=== PATIENT | male | born 1965 | race Native Hawaiian/Other Pacific Islander ===

== ENCOUNTER 2021-10-12 16:11 | Emergency (ER) | payer OTHER, SELFPAY ==
[2021-10-12 16:42] VITALS: BP 159/87; PULSE 96; RESP 18; TEMP 36.6; O2SAT 97; BMI 27.3
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
[2021-10-12 18:53] VITALS: PULSE 89; RESP 18; O2SAT 99
== END 2021-10-12 18:54 | disposition home or self-care (01) ==
PROVIDERS: Emergency Provider Nurse Practitioner Family
DX: S16.1XXA Strain of muscle, fascia and tendon at neck level, initial encounter (principal); V89.2XXA Person injured in unspecified motor-vehicle accident, traffic, initial encounter; Y92.410 Unspecified street and highway as the place of occurrence of the external cause
CPT/HCPCS: 72125; 99283

== ENCOUNTER 2022-06-20 11:01 | Outpatient (CLI) | payer BC, SELFPAY ==
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
== END 2022-06-20 11:02 | disposition home or self-care (01) ==
LOC: RAD 11:01
PROVIDERS: PCP Internal Medicine; Visit Provider Internal Medicine
DX: I73.9 Peripheral vascular disease, unspecified (principal)
CPT/HCPCS: 93971

== ENCOUNTER 2022-06-20 12:13 | Emergency (ER) | payer BC, SELFPAY ==
[2022-06-20] VITALS (11 sets, daily range): BP systolic 121–150; BP diastolic 73–90; PULSE 62–103; RESP 10–21; TEMP 36.7; O2SAT 98–100; BMI 29.7
--- NOTE | 2022-06-20 13:05 | W.ED.EXTPRO ---
HPI - Extremity Problem General: Chief complaint: Extremity Problem,Nontraumatic Stated complaint: possible blood clot Time Seen by Provider: 06/20/22 12:40 History of Present Illness: This 56-year-old male was brought to the ER for evaluation of a left popliteal artery thrombosis that was found on ultrasound done this morning. Patient states that yesterday, while walking in [facility], he felt a charley horse type pain in the left calf. By the time he was done shopping, he could not hardly walk. He went over to his primary care provider's office who ordered an ultrasound that was done today. When he elevated his leg last night, the left leg turned purple. Ultrasound reveals a left popliteal artery thrombosis and so he was sent to the ER for evaluation. I reviewed the ultrasound report which gave an impression of an acute occlusive left popliteal artery thrombus with no residual blood flow distal to the thrombus. Flow is detected in the left dorsalis pedis artery and posterior tibial artery. There is no evidence of lower extremity DVT. Associated symptoms: Deny chest pain Review of Systems Const: Denies: chills, body aches or change in appetite Eyes: Denies: change in vision or eye discharge ENMT: Denies: throat pain, dental pain or nasal discharge Card: Denies: chest pain or lightheadedness : Denies: dysuria Musc: Reports: other (Pain left lower extremity) Neuro: Denies: headache(s) or weakness in extremities Psych: Denies: depression Efren/Lymph: Denies: easy bruising All/Imm: Denies: urticaria, tongue swelling or facial swelling Physical Exam Const: COMMON NORMALS: no acute distress and no limitations Chest: COMMONS NORMALS: normal inspection of the chest Resp: COMMON NORMALS: normal respiratory effort, No retractions, No use of accessory muscles and clear to auscultation bilaterally AUSCULTATION: clear to auscultation bilaterally Cardio: COMMON NORMALS: regular rate, regular rhythm and No murmurs present (Cardio) RATE: regular rate RHYTHM: regular rhythm GI: COMMON NORMALS: Normal to inspection, nondistended, normoactive bowel sounds present and non-tender Extremity: GENERAL: Yes normal exam except as noted OTHER: Tenderness on palpation of the left calf. No significant swelling. Presence of dorsalis pedis pulse. Purplish discoloration around the heel pad. No distal sensory deficit. Course Consultations: Consultation #1: Called [facility] live referral to speak with a vascular surgeon. They will get one and call us back. Time: 13:09 Consultation #2: [facility] referral called back to note that they spoke with Dr. Wilde, vascular surgeon on-call and he accepted patient in transfer. In the meantime he recommends starting patient on heparin drip. Time: : Vital Signs: Vital signs: Vital Signs Temperature 98.1 F 06/20/22 12:17 Pulse Rate 62 06/20/22 15:05 Respiratory Rate 10 L 06/20/22 15:05 Blood Pressure 121/73 06/20/22 15:05 Pulse Oximetry 99 06/20/22 15:05 Oxygen Delivery Me thod 06/20/22 12:17 MDM - Extremity (Nontraumatic) Medical Decision Making Medical decision making: History as above. Ultrasound done this morning reveals a popliteal artery thrombus. However, dorsalis pedis pulse and posterior tibial pulses are present. He will be transferred to a tertiary center with vascular surgery. Patient accepted at [facility]. IV heparin drip started. Lab Data 06/20/22 13:00 06/20/22 13:00 Laboratory Results WBC 6.3 10^3/uL (4.0-10.0) 06/20/22 13:00 RBC 5.74 10^6/uL (4.1-5.3) H 06/20/22 13:00 Hgb 17.0 g/dL (11.7-16.6) H 06/20/22 13:00 Hct 50.5 % (42.0-52.0) 06/20/22 13:00 MCV 88.0 fl (80-94) 06/20/22 13:00 MCH 29.6 pg (28.0-34.0) 06/20/22 13:00 MCHC 33.7 g/dL (30.0-36.0) 06/20/22 13:00 RDW 11.9 % (12.1-15.1) L 06/20/22 13:00 Plt Count 167 10^3/cmm (130-400) 06/20/22 13:00 MPV 9.5 fL (7.4-10.4) 06/20/22 13:00 Neut % (Auto) 48.5 % 06/20/22 13:00 Lymph % (Auto) 41.2 % 06/20/22 13:00 [place] % (Auto) 8.1 % 06/20/22 13:00 Eos % (Auto) 1.1 % 06/20/22 13:00 Baso % (Auto) 0.6 % 06/20/22 13:00 Neut # (Auto) 3.04 10^3/uL (1.8-7.7) 06/20/22 13:00 Lymph # (Auto) 2.6 10^3/uL (0.8-4.8) 06/20/22 13:00 [place] # (Auto) 0.5 10^3/uL (0.2-0.9) 06/20/22 13:00 Eos # (Auto) 0.1 10^3/uL (0.0-0.8) 06/20/22 13:00 Baso # (Auto) 0.0 10^3/uL (0.0-0.1) 06/20/22 13:00 Nucleated RBC % (auto) 0 % 06/20/22 13:00 Nucleated RBCs # 0.0 /100WBC 06/20/22 13:00 PT 13.10 SECONDS (12.1-14.9) 06/20/22 13:00 INR 0.96 (0.8-1.2) 06/20/22 13:00 APTT 28.7 SECONDS (23.9-36.7) 06/20/22 13:00 Sodium 138 mmol/L (136-145) 06/20/22 13:00 Potassium 3.7 mmol/L (3.5-5.1) 06/20/22 13:00 Chloride 101 mmol/L (98-107) 06/20/22 13:00 Carbon Dioxide 26 mmol/L (22-29) 06/20/22 13:00 Anion Gap 14.7 (5-19) 06/20/22 13:00 BUN 10 mg/dL (6-20) 06/20/22 13:00 Creatinine 0.9 mg/dL (0.7-1.2) 06/20/22 13:00 GFR Calculation 87.6 mL/min (90-130) L 06/20/22 13:00 Glucose 89 mg/dL (65-115) 06/20/22 13:00 Calculated Osmolality 285 mOsm/kg (285-295) 06/20/22 13:00 Calcium 9.5 mg/dL (8.5-10.5) 06/20/22 13:00 Total Bilirubin 0.5 mg/dL (0.15-1.2) 06/20/22 13:00 AST 32 U/L (0-40) 06/20/22 13:00 ALT 32 U/L (0-41) 06/20/22 13:00 Alkaline Phosphatase 87 U/L (40-130) 06/20/22 13:00 Total Protein 7.2 g/dL (6.6-8.7) 06/20/22 13:00 Albumin 4.6 g/dL (3.5-5.2) 06/20/22 13:00 Globulin 2.6 g/dL (1.3-4.6) 06/20/22 13:00 Discharge Plan Discharge Patient Disposition: Xfer Short-Term Hosp Clinical Impression: Arterial embolus and thrombosis of lower extremity Condition: Stable Referrals: Lisandro William DO [Primary Care Provider] - Coding Level of Care Code ED Planning Director for Kerry Ervin
[2022-06-20 13:08] LABS: Basophils % 0.6 %; Eosinophils # 0.1 10^3/uL (0.0-0.8); Eosinophils % 1.1 %; Hematocrit 50.5 % (42.0-52.0); Lymphocytes # 2.6 10^3/uL (0.8-4.8); Lymphocytes % 41.2 %; Mean Corpuscular HGB Conc 33.7 g/dL (30.0-36.0); Mean Corpuscular Hemoglobin 29.6 pg (28.0-34.0); Mean Platelet Volume 9.5 fL (7.4-10.4); Monocytes # 0.5 10^3/uL (0.2-0.9); Monocytes % 8.1 %; Neutrophils # 3.04 10^3/uL (1.8-7.7); Neutrophils % 48.5 %; Nucleated Red Blood Cells % 0 %; Platelet Count 167 10^3/cmm (130-400); Red Blood Count 5.74 10^6/uL (4.1-5.3); Red Cell Distribution Width 11.9 % (12.1-15.1); White Blood Count 6.3 10^3/uL (4.0-10.0)
[2022-06-20 13:20] LABS: INR 0.96 (0.8-1.2); Partial Thromboplastin Time 28.7 SECONDS (23.9-36.7)
[2022-06-20 13:26] LABS: Alanine Aminotransferase 32 U/L (0-41); Albumin Level 4.6 g/dL (3.5-5.2); Alkaline Phosphatase 87 U/L (40-130); Anion Gap 14.7 (5-19); Aspartate Amino Transferase 32 U/L (0-40); Blood Urea Nitrogen 10 mg/dL (6-20); Calcium 9.5 mg/dL (8.5-10.5); Carbon Dioxide 26 mmol/L (22-29); Chloride 101 mmol/L (98-107); Globulin 2.6 g/dL (1.3-4.6); Glomerular Filtration Rate 87.6 mL/min (90-130); Glucose 89 mg/dL (65-115); Osmolality Calculated 285 mOsm/kg (285-295); Potassium 3.7 mmol/L (3.5-5.1); Sodium 138 mmol/L (136-145); Total Bilirubin 0.5 mg/dL (0.15-1.2); Total Protein 7.2 g/dL (6.6-8.7)
--- NOTE | 2022-06-20 13:55 | PC.NURSE ---
Confirmed heparin gtt order with Dr. Pereira as it is not our hospital protocol. Per Dr. Pereira, continue with his order of heparin gtt at 12u/kg/hour. Start at 1000u/hour. Notified pharmacy.
[2022-06-20] MEDS: heparin drip 25,000 UNIT/500 ML PREMIX 21.34 UNIT IV (14:47)
== END 2022-06-20 16:04 | disposition short-term general hospital (02) ==
PROVIDERS: Nurse Practitioner Family; Emergency Provider Family Medicine; PCP Internal Medicine
DX: I74.3 Embolism and thrombosis of arteries of the lower extremities (principal)
CPT/HCPCS: 36415; 80053; 85025; 85610; 85730; 96365; 99284; J1644

== ENCOUNTER 2023-04-18 11:57 | Emergency (ER) | payer OTHER, BC, SELFPAY ==
[2023-04-18 12:26] VITALS: BP 131/92; PULSE 103; RESP 20; TEMP 36.6; O2SAT 98; BMI 27.3
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
== END 2023-04-18 13:44 | disposition home or self-care (01) ==
PROVIDERS: Emergency Provider Nurse Practitioner Family; PCP Family Medicine
DX: S40.012A Contusion of left shoulder, initial encounter (principal); S16.1XXA Strain of muscle, fascia and tendon at neck level, initial encounter; V89.2XXA Person injured in unspecified motor-vehicle accident, traffic, initial encounter
CPT/HCPCS: 72040; 73030; 99284